=== PATIENT | male | born 1960 | race African-American/Black ===

== ENCOUNTER 2016-10-06 12:24 | Emergency (ER) | payer OTHER | END 2016-10-06 13:00 | disposition home or self-care (01) | LOC: MADERS 12:24 | DX: M54.41 Lumbago with sciatica, right side (principal); I10 Essential (primary) hypertension; F17.210 Nicotine dependence, cigarettes, uncomplicated | CPT/HCPCS: 99283 ==

== ENCOUNTER 2016-12-15 13:51 | Emergency (ER) | payer OTHER | END 2016-12-15 14:40 | disposition home or self-care (01) | LOC: MADERS 13:51 | DX: I10 Essential (primary) hypertension (principal); F17.210 Nicotine dependence, cigarettes, uncomplicated; Z79.899 Other long term (current) drug therapy | CPT/HCPCS: 99283 ==

== ENCOUNTER 2017-05-07 14:50 | Emergency (ER) | payer OTHER | END 2017-05-07 15:25 | disposition home or self-care (01) | LOC: MADERS 14:50 | DX: M62.838 Other muscle spasm (principal); I10 Essential (primary) hypertension; F17.210 Nicotine dependence, cigarettes, uncomplicated; Z79.899 Other long term (current) drug therapy | CPT/HCPCS: 99283 ==

== ENCOUNTER 2017-11-03 12:18 | Emergency (ER) | payer OTHER | END 2017-11-03 12:55 | disposition home or self-care (01) | LOC: MADERS 12:18 | DX: M54.5 Low back pain (principal); I10 Essential (primary) hypertension; F17.210 Nicotine dependence, cigarettes, uncomplicated | CPT/HCPCS: 99283 ==

== ENCOUNTER → 2017-12-27 | Emergency (ER) | payer OTHER | LOC: MADERS 18:53 | DX: M62.830 Muscle spasm of back (principal); I10 Essential (primary) hypertension; F17.210 Nicotine dependence, cigarettes, uncomplicated; Z79.899 Other long term (current) drug therapy; Z91.19 Patient's noncompliance with other medical treatment and regimen | CPT/HCPCS: 99283 ==

== ENCOUNTER 2018-02-13 07:52 | Emergency (ER) | payer OTHER ==
[~2018-02-13 07:52] MED LIST: Sodium Chloride Irrig Solution 250 ML BOT ONE
[2018-02-13 08:44] LABS: #Basophils 0.2 thou/uL (0.0-0.2); #Lymphocytes 1.4 thou/uL (1.20-3.40); #Monocytes 0.4 thou/uL (0.11-0.59); #Neutrophils 3.6 thou/uL (1.40-6.50); %Basophils 2.7 % (0.0-1.0); %Eosinophils 0.6 % (0.0-10.0); %Lymphocytes 25.5 % (21.0-51.0); %Monocytes 7.2 % (0.0-10.0); Hemoglobin 9.2 g/dL (14.0-18.0); Mean Corpuscular HGB CONC 32.9 g/dL (32.0-36.0); Mean Corpuscular Hemoglobin 30.4 pg (27.0-31.0); Mean Corpuscular Volume 92.4 fl (80.0-94.0); Mean Platelet Volume 6.4 fL (7.4-10.4); Platelet Count 317 thou/uL (130-400); Red Blood Cell (RBC) Count 3.04 mill/uL (4.70-6.10); White Blood Cell (WBC) Count 5.6 thou/uL (4.8-10.8)
[2018-02-13] MEDS ORDERED: Naproxen 500 MG TAB ONE (08:48)
[2018-02-13] MEDS ORDERED: HYDROcodone/Acetaminophen 10/325 mg Tablet ONE (08:48)
[2018-02-13] MEDS ORDERED: diphenhydrAMINE 25 MG CAP ONE (08:48)
[2018-02-13 08:59] LABS: ALT (SGPT) 14 U/L (8-55); AST (SGOT) 15 U/L (5-34); Albumin 3.3 g/dL (3.5-5.0); Alkaline Phosphatase 55 U/L (40-150); Anion Gap 15 mmol/L (10-20); BUN (Urea Nitrogen) 20 mg/dL (8.4-25.7); Bilirubin, Total 0.2 mg/dL (0.2-1.2); Calc. Creatinine Clearance 0 mL/min (70-130); Calcium 9.4 mg/dL (7.8-10.44); Carbon Dioxide 24 mmol/L (22-29); Chloride 105 mmol/L (98-107); Estimated GFR-MDRD Greater than 90; Globulin 2.8 g/dL (2.4-3.5); Glucose 191 mg/dL (70-105); Protein, Total 6.1 g/dL (6.0-8.3); Sodium 140 mmol/L (136-145)
[2018-02-13 09:04] LABS: PTT 23.7 SEC (22.9-36.1); Prothrombin Time 13.6 SEC (12.0-14.7)
[2018-02-13 09:12] LABS: CKMB 0.9 ng/mL (0-6.6); Troponin I 0.015 ng/mL (< 0.028)
== END 2018-02-13 10:20 | disposition home or self-care (01) ==
LOC: MADERS 07:52
DX: D64.9 Anemia, unspecified (principal); R55 Syncope and collapse; I10 Essential (primary) hypertension; F17.210 Nicotine dependence, cigarettes, uncomplicated; Z79.899 Other long term (current) drug therapy
CPT/HCPCS: 36416; 80053; 82550; 82553; 83880; 84484; 85025; 85610; 85730; 93005; 94760; 36415-59